=== PATIENT | male | born 1950 | race Caucasian/White ===

== ENCOUNTER 2016-07-12 18:54 | Inpatient (IN) | payer MEDICARE ==
[~2016-07-12] VITALS: Ht 180.3 cm; Wt 75.0 kg
[2016-07-12] MEDS ORDERED: SODIUM CHLORIDE 0.9% 1,000 ML IV ONE (19:13)
[2016-07-12 19:50] LABS: BLOOD UREA NITROGEN 17 mg/dL (7-18)
[2016-07-12] MEDS ORDERED: FINA5TAB4 PO (19:50)
[2016-07-12] MEDS ORDERED: ASPI-496 PO (19:50)
[2016-07-12] MEDS ORDERED: LEVO50TA5 PO (19:50)
[2016-07-12 19:58] LABS: IS PT STATUS REG ER OR PRE ER? YES
[2016-07-12] MEDS ORDERED: ACETAMINOPHEN 325 MG TABLET PO PRN (22:30)
[2016-07-12] MEDS ORDERED: ENALAPRILAT 1.25 MG/ML, 2ML IVPush PRN (22:30)
[2016-07-12] MEDS ORDERED: HYDROcodone/APAP 5/325 TABLET PO PRN (22:30)
[2016-07-12] MEDS ORDERED: MORPHINE SULFATE 4 MG/ML, 1ML IVPush PRN (22:30)
[2016-07-12] MEDS ORDERED: BISACODYL 10 MG SUPP PR PRN (22:30)
[2016-07-12] MEDS ORDERED: ONDANSETRON 2MG/ML, 2ML IVP PRN (22:30)
[2016-07-12] MEDS ORDERED: ENOXAPARIN 40 MG/0.4 ML SQ SCH (22:30)
[2016-07-12] MEDS ORDERED: POLYETHYLENE GLYCOL 17 GM PACKET PO PRN (22:30)
[2016-07-12 22:39] LABS: IS PT STATUS REG ER OR PRE ER? YES
[2016-07-12] MEDS: SODIUM CHLORIDE 0.9% 1,000 ML IV SCH (23:10)
[2016-07-12 23:30] VITALS: BP 126/83
[2016-07-13 02:30] VITALS: BP 141/89
[2016-07-13 04:46] LABS: HEMOGLOBIN 13.4 g/dL (13.7-18.0)
[2016-07-13 05:31] LABS: ASPARTATE AMINO TRANSFERASE 13 U/L (15-37); BLOOD UREA NITROGEN 13 mg/dL (7-18)
[2016-07-13 05:40] LABS: IS PT STATUS REG ER OR PRE ER? NO
[2016-07-13] MEDS ORDERED: ASPIRIN 325 MG TABLET EC PO SCH (06:00)
[2016-07-13 07:43] VITALS: BP 117/72
[2016-07-13] MEDS ORDERED: FINASTERIDE 5 MG TABLET PO SCH (09:00)
[2016-07-13] MEDS ORDERED: LEVOTHYROXINE 50 MCG TABLET PO SCH (09:00)
[2016-07-13] MEDS ORDERED: ASPIRIN 81 MG TABLET EC PO SCH (09:00)
[2016-07-13] MEDS: SODIUM CHLORIDE 0.9% 1,000 ML IV SCH (09:19)
[2016-07-13 13:36] VITALS: BP 138/82
[2016-07-13] MEDS ORDERED: LEVOTHYROXINE 50 MCG TABLET PO ONE (15:00)
[2016-07-13] MEDS ORDERED: Atorvastatin Calcium PO (16:44)
[2016-07-13] MEDS ORDERED: ATORVASTATIN 20 MG TABLET PO SCH (21:00)
[2016-07-14] MEDS ORDERED: LEVOTHYROXINE 50 MCG TABLET PO SCH (06:00)
[2016-07-14] MEDS ORDERED: ATOR20TA PO (16:40)
== END 2016-07-13 18:53 | disposition home or self-care (01) | DRG 300 ==
LOC: ED 20:50 → SUATTDRO 21:18 → EDIP 21:22 → 4WST 22:48
PROVIDERS: ADMIT Internal Medicine; ATTEND Family Medicine
DX: I73.9 Peripheral vascular disease, unspecified (principal); G45.9 Transient cerebral ischemic attack, unspecified; R47.01 Aphasia; E03.9 Hypothyroidism, unspecified; F12.90 Cannabis use, unspecified, uncomplicated; R60.0 Localized edema; Z85.819 Personal history of malignant neoplasm of unspecified site of lip, oral cavity, and pharynx; Z92.21 Personal history of antineoplastic chemotherapy; Z92.3 Personal history of irradiation; Z90.89 Acquired absence of other organs; Z85.850 Personal history of malignant neoplasm of thyroid
CPT/HCPCS: 36415; 70450; 70551; 80048; 80053; 80061; 82040; 84443; 84484; 85025; 85610; 85730; 93005; 93306; 93880; 96360; 96361; J1650; 92523-GN; J7030

== ENCOUNTER → 2016-09-12 | Outpatient (CLI) | payer MEDICARE ==
[~2016-09-12] MED LIST: ASPI-496 PO; ATOR20TA PO; Atorvastatin Calcium PO; FINA5TAB4 PO; LEVO50TA5 PO; REGADENOSON 0.4 MG/5 ML SYRINGE ONE
== END | disposition home or self-care (01) ==
LOC: CFH 08:50
PROVIDERS: ATTEND Internal Medicine Cardiovascular Disease
DX: R07.9 Chest pain, unspecified (principal)
CPT/HCPCS: 78452; 93017; A9502; J2785

== ENCOUNTER 2017-05-12 20:07 | Emergency (ER) | payer MEDICARE ==
[~2017-05-12] VITALS: Ht 182.9 cm; Wt 73.0 kg
[~2017-05-12 20:07] MED LIST changes: -REGADENOSON 0.4 MG/5 ML SYRINGE ONE
[2017-05-12] MEDS ORDERED: ALBUTEROL/IPRATROPIUM 2.5MG/0.5MG, 3 ML ONE (20:31)
[2017-05-12 20:33] LABS: BASOPHILS # (AUTO) 0.07 x10^3/uL (0-0.1); BASOPHILS % (AUTO) 1 % (0-1); EOSINOPHILS # (AUTO) 0.04 x10^3/uL (0-0.4); EOSINOPHILS % (AUTO) 0 % (1-7); LYMPHOCYTES # (AUTO) 0.79 x10^3/uL (1-3.4); LYMPHOCYTES % (AUTO) 9 % (22-44); MD NO; MEAN CORPUSCULAR HEMOGLOBIN 31.8 pg (27.5-34.5); MEAN CORPUSCULAR HGB CONC 33.3 g/dL (33.2-36.2); MEAN CORPUSCULAR VOLUME 95.4 fL (81-97); MEAN PLATELET VOLUME 8.4 fL (7.4-10.4); MONOCYTES # (AUTO) 0.51 x10^3/uL (0.2-0.8); MONOCYTES % (AUTO) 6 % (2-9); NEUTROPHILS # (AUTO) 7.29 x10^3/uL (1.8-6.8); NEUTROPHILS % (AUTO) 84 % (42-75); PLATELET COUNT 204 x10^3/uL (130-400); RED BLOOD COUNT 5.07 x10^6/uL (4.38-5.82); RED CELL DISTRIBUTION WIDTH 13.7 % (9.4-14.8)
[2017-05-12 20:48] LABS: TROPONIN I < 0.015 ng/mL (0.000-0.045)
[2017-05-12 20:55] LABS: ALANINE AMINOTRANSFERASE 37 U/L (12-78); ALBUMIN 3.9 g/dL (3.4-5.0); ANION GAP 10 mmol/L (5-15); CALCIUM 8.4 mg/dL (8.5-10.1); CHLORIDE 104 mmol/L (98-107)
[2017-05-12 20:58] LABS: ALKALINE PHOSPHATASE 54 U/L (45-117); BILIRUBIN,TOTAL 0.7 mg/dL (0.2-1.0); TOTAL PROTEIN 7.1 g/dL (6.4-8.2)
[2017-05-12 22:01] VITALS: BP 151/82
== END 2017-05-12 22:26 | disposition home or self-care (01) ==
LOC: ED 22:00
DX: R55 Syncope and collapse (principal); I10 Essential (primary) hypertension; E03.9 Hypothyroidism, unspecified; Z86.73 Personal history of transient ischemic attack (TIA), and cerebral infarction without residual deficits
CPT/HCPCS: 36415; 71010; 80053; 83880; 84484; 85025; 93005; 94640; 99285

== ENCOUNTER → 2017-05-25 | Outpatient (CLI) | payer MEDICARE | END | disposition home or self-care (01) | LOC: CARD 12:47 | PROVIDERS: ATTEND Psychiatry & Neurology Neurology | DX: R55 Syncope and collapse (principal) | CPT/HCPCS: 95819 ==

== ENCOUNTER 2018-07-25 15:33 | Inpatient (IN) | payer MEDICARE ==
[~2018-07-25] VITALS: Ht 182.9 cm; Wt 76.5 kg
[2018-07-25 16:13] LABS: BASOPHILS # (AUTO) 0.02 x10^3/uL (0-0.1); BASOPHILS % (AUTO) 0 % (0-1); EOSINOPHILS # (AUTO) 0.06 x10^3/uL (0-0.4); EOSINOPHILS % (AUTO) 1 % (1-7); LYMPHOCYTES # (AUTO) 1.01 x10^3/uL (1-3.4); LYMPHOCYTES % (AUTO) 15 % (22-44); MD NO; MEAN CORPUSCULAR HEMOGLOBIN 31.1 pg (27.5-34.5); MEAN CORPUSCULAR HGB CONC 32.6 g/dL (33.2-36.2); MEAN CORPUSCULAR VOLUME 95.2 fL (81-97); MEAN PLATELET VOLUME 8.6 fL (7.4-10.4); MONOCYTES # (AUTO) 0.51 x10^3/uL (0.2-0.8); MONOCYTES % (AUTO) 8 % (2-9); NEUTROPHILS # (AUTO) 5.07 x10^3/uL (1.8-6.8); NEUTROPHILS % (AUTO) 76 % (42-75); PLATELET COUNT 211 x10^3/uL (130-400); RED CELL DISTRIBUTION WIDTH 13.8 % (9.4-14.8)
[2018-07-25 16:20] LABS: ALBUMIN 4.2 g/dL (3.4-5.0); ANION GAP 6 mmol/L (5-15); CALCIUM 8.7 mg/dL (8.5-10.1); CHLORIDE 108 mmol/L (98-107); CREATININE 1.01 mg/dL (0.7-1.3)
--- NOTE | 2018-07-25 16:40 | NUR ---
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
--- NOTE | 2018-07-25 16:49 | NUR ---
PT AMBULATORY TO ROOM 17 W/ C/O HAVING AN IMPLANTED HEART MONITOR AND HAD A 9 SEC STOP ON 07/14/18. SENIOR TECHNICAL RECRUITER DR. GALARZA AT BEDSIDE WHO STATES PT NEEDS A PACEMAKER. [facility] ON [facility] MONITORS APPLIED. WARM BLANKET PROVIDED. PT ONLY HAD ONE INCIDENT OF A 9 SEC PAUSE.
[2018-07-25] MEDS ORDERED: ALFU10TA PO (17:25)
[2018-07-25] MEDS ORDERED: SUCR1TAB PO (17:25)
[2018-07-25] MEDS ORDERED: OMEP-110 PO (17:25)
[2018-07-25] MEDS ORDERED: AREDS (17:25)
[2018-07-25] MEDS ORDERED: CLOP75TA52 PO (17:25)
[2018-07-25] MEDS ORDERED: UBID50TA3 PO (17:25)
[2018-07-25] MEDS ORDERED: SODIUM CHLORIDE FLUSH 10ML SYR IVF PRN (17:30)
[2018-07-25] MEDS ORDERED: CEFAZOLIN PMX 1GM/50ML 50 ML IVPB ONE (17:30)
[2018-07-25 17:52] LABS: INTERNATIONAL NORMALIZED RATIO 1.01 (0.93-1.1); PROTHROMBIN TIME 10.6 Seconds (9.6-11.5)
[2018-07-25] MEDS ORDERED: ZOLPIDEM 5MG TABLET PO PRN (18:00)
[2018-07-25] MEDS ORDERED: ACETAMINOPHEN 325 MG TABLET PO PRN (18:00)
[2018-07-25 18:10] LABS: THYROID STIMULATING HORMONE 1.31 mIU/L (0.358-3.740)
--- NOTE | 2018-07-25 18:35 | NUR ---
PT RESTING ON GURNEY. NADN. LEE.
[2018-07-25] MEDS ORDERED: CEFAZOLIN PMX 1GM/50ML 50 ML ONE (18:40)
[2018-07-25] MEDS: SODIUM CHLORIDE 0.9% 1,000 ML IV SCH (18:56)
--- NOTE | 2018-07-25 19:02 | NUR ---
BEDSIDE REPORT GIVEN TO JAVIER VALLECILLO RN.
--- NOTE | 2018-07-25 20:00 | NUR ---
PT RESTING QUIETLY, TEXTING ON PHONE, NO DISTRESS NOTED, HAS LEFT FOR THE NIGHT, CALL LIGHT IN REACH
--- NOTE | 2018-07-25 21:09 | NUR ---
REPORT GIVEN TO KIRSTEN TORRES
[2018-07-25] MEDS: ATORVASTATIN 20 MG TABLET PO SCH (23:29)
[2018-07-25 23:33] VITALS: BP 152/90
[2018-07-26] MEDS: SODIUM CHLORIDE 0.9% 1,000 ML IV SCH ×4 (01:40→22:10)
[2018-07-26 01:51] VITALS: BP 128/70
[2018-07-26] MEDS: LEVOTHYROXINE 75 MCG TABLET PO SCH (06:11)
[2018-07-26 07:24] VITALS: BP 143/84
[2018-07-26] MEDS: CLOPIDOGREL 75 MG TABLET PO SCH (09:00)
[2018-07-26] MEDS ORDERED: UBIDECARENONE 200 MG PO SCH (09:00)
[2018-07-26] MEDS: ALFUZOSIN HCL 10 MG PO SCH (09:00)
[2018-07-26] MEDS: FINASTERIDE 5 MG TABLET PO SCH (09:00)
[2018-07-26] MEDS: OMEPRAZOLE 20 MG CAPSULE.DR PO SCH (09:00)
[2018-07-26] MEDS ORDERED: CEFAZOLIN PMX 1GM/50ML 50 ML ONE (10:25)
[2018-07-26] MEDS ORDERED: MIDAZOLAM 1 MG/ML, 5ML ONE (10:25)
[2018-07-26] MEDS ORDERED: LIDOCAINE 1%, 20ML ONE ×2 (10:25→11:50)
[2018-07-26] MEDS ORDERED: FENTANYL PF 250 MCG/5ML ONE (10:25)
[2018-07-26] MEDS ORDERED: CEFAZOLIN 1,000 MG ONE (10:26)
[2018-07-26] MEDS ORDERED: HOLD MEDICATION MC PRN (12:30)
[2018-07-26] MEDS ORDERED: HYDROcodone/APAP 5/325 TABLET PO PRN (12:30)
[2018-07-26 13:56] VITALS: BP 169/70
[2018-07-26] MEDS: CEFAZOLIN PMX 1GM/50ML 50 ML IVPB SCH (18:00)
[2018-07-26 20:51] VITALS: BP 158/90
[2018-07-26] MEDS: ATORVASTATIN 20 MG TABLET PO SCH (21:00)
[2018-07-26] MEDS: SODIUM CHLORIDE FLUSH 10ML SYR IVF SCH (21:00)
[2018-07-27 01:56] VITALS: BP 168/96
[2018-07-27] MEDS: CEFAZOLIN PMX 1GM/50ML 50 ML IVPB SCH ×2 (02:30→09:03)
[2018-07-27 05:12] LABS: BASOPHILS # (AUTO) 0.02 x10^3/uL (0-0.1); BASOPHILS % (AUTO) 0 % (0-1); EOSINOPHILS # (AUTO) 0.05 x10^3/uL (0-0.4); EOSINOPHILS % (AUTO) 1 % (1-7); LYMPHOCYTES # (AUTO) 0.92 x10^3/uL (1-3.4); LYMPHOCYTES % (AUTO) 13 % (22-44); MD NO; MEAN CORPUSCULAR HGB CONC 33.3 g/dL (33.2-36.2); MEAN CORPUSCULAR VOLUME 96.1 fL (81-97); MONOCYTES % (AUTO) 8 % (2-9); NEUTROPHILS # (AUTO) 5.57 x10^3/uL (1.8-6.8); NEUTROPHILS % (AUTO) 78 % (42-75); PLATELET COUNT 177 x10^3/uL (130-400); RED BLOOD COUNT 4.81 x10^6/uL (4.38-5.82)
[2018-07-27 05:20] LABS: ALBUMIN 3.5 g/dL (3.4-5.0); ANION GAP 6 mmol/L (5-15); CALCIUM 8.4 mg/dL (8.5-10.1); CHLORIDE 110 mmol/L (98-107)
[2018-07-27 05:23] LABS: ALANINE AMINOTRANSFERASE 18 U/L (12-78); ALKALINE PHOSPHATASE 51 U/L (45-117); CREATININE 0.86 mg/dL (0.7-1.3); TOTAL PROTEIN 6.5 g/dL (6.4-8.2)
[2018-07-27] MEDS: LEVOTHYROXINE 75 MCG TABLET PO SCH (06:00)
[2018-07-27 08:05] VITALS: BP 161/91
[2018-07-27] MEDS ORDERED: ACET325T14 PO (08:58)
[2018-07-27] MEDS: FINASTERIDE 5 MG TABLET PO SCH (09:00)
[2018-07-27] MEDS: CLOPIDOGREL 75 MG TABLET PO SCH (09:00)
[2018-07-27] MEDS: OMEPRAZOLE 20 MG CAPSULE.DR PO SCH (09:00)
[2018-07-27] MEDS: ALFUZOSIN HCL 10 MG PO SCH (09:00)
[2018-07-27] MEDS: SODIUM CHLORIDE FLUSH 10ML SYR IVF SCH (09:03)
== END 2018-07-27 10:48 | disposition home or self-care (01) | DRG 242 ==
LOC: ED 17:25 → EDIP 17:26 → ED 17:59 → 5SO 21:22 → DCLOUNGE 07-27 10:30
PROVIDERS: ADMIT Internal Medicine Cardiovascular Disease; ATTEND Internal Medicine Cardiovascular Disease
PROC: 0JH606Z Insertion of Pacemaker, Dual Chamber into Chest Subcutaneous Tissue and Fascia, Open Approach (ICD-10-PCS; principal; 2018-07-26)
PROC: 02H63JZ Insertion of Pacemaker Lead into Right Atrium, Percutaneous Approach (ICD-10-PCS; 2018-07-26)
PROC: 02HK3JZ Insertion of Pacemaker Lead into Right Ventricle, Percutaneous Approach (ICD-10-PCS; 2018-07-26)
PROC: 0JPT02Z Removal of Monitoring Device from Trunk Subcutaneous Tissue and Fascia, Open Approach (ICD-10-PCS; 2018-07-26)
PROC: 4B02XSZ Measurement of Cardiac Pacemaker, External Approach (ICD-10-PCS; 2018-07-27)
DX: I49.5 Sick sinus syndrome (principal); I50.33 Acute on chronic diastolic (congestive) heart failure; I10 Essential (primary) hypertension; E78.5 Hyperlipidemia, unspecified; E03.9 Hypothyroidism, unspecified; I08.0 Rheumatic disorders of both mitral and aortic valves; Z85.819 Personal history of malignant neoplasm of unspecified site of lip, oral cavity, and pharynx; Z86.73 Personal history of transient ischemic attack (TIA), and cerebral infarction without residual deficits; Z87.891 Personal history of nicotine dependence; I11.0 Hypertensive heart disease with heart failure
CPT/HCPCS: 33208; 36415; 71045; 71046; 80048; 80053; 82040; 84443; 84481; 85025; 85610; 85730; 93005; 93306; 96374; 99156; 99157; 99285; C1779; C1785; C1892; G0378; J0690; J2250; J3010; J3490; J7030

== ENCOUNTER → 2018-07-31 | Outpatient (CLI) | payer MEDICARE ==
[~2018-07-31] MED LIST changes: +ACET325T14 PO; +ALFU10TA PO; +AREDS; +CLOP75TA52 PO; +OMEP-110 PO; +SUCR1TAB PO; +UBID50TA3 PO
== END | disposition home or self-care (01) ==
LOC: CFH 11:03
DX: E03.9 Hypothyroidism, unspecified (principal); G45.9 Transient cerebral ischemic attack, unspecified; I10 Essential (primary) hypertension; I36.1 Nonrheumatic tricuspid (valve) insufficiency; I73.9 Peripheral vascular disease, unspecified; Z96.89 Presence of other specified functional implants
CPT/HCPCS: 71046

== ENCOUNTER → 2018-10-10 | Outpatient (CLI) | payer MEDICARE | END | disposition home or self-care (01) | LOC: CVU 08:26 | PROVIDERS: ATTEND Internal Medicine Cardiovascular Disease | DX: I65.23 Occlusion and stenosis of bilateral carotid arteries (principal); I10 Essential (primary) hypertension; E78.5 Hyperlipidemia, unspecified; Z95.0 Presence of cardiac pacemaker; Z86.73 Personal history of transient ischemic attack (TIA), and cerebral infarction without residual deficits | CPT/HCPCS: 93880 ==

== ENCOUNTER 2018-11-26 16:18 | Outpatient (CLI) | payer MEDICARE | END 2018-11-26 23:59 | disposition home or self-care (01) | LOC: CFH 16:18 | PROVIDERS: ATTEND Nurse Practitioner Primary Care | DX: M79.662 Pain in left lower leg (principal) ==

== ENCOUNTER 2018-12-12 16:02 | Outpatient (CLI) | payer MEDICARE | END 2018-12-12 23:59 | disposition home or self-care (01) | LOC: CVU 16:02 | PROVIDERS: ATTEND Nurse Practitioner Primary Care | DX: M79.662 Pain in left lower leg (principal); I10 Essential (primary) hypertension; E78.5 Hyperlipidemia, unspecified | CPT/HCPCS: 93922 ==

== ENCOUNTER 2018-12-13 10:51 | Outpatient (CLI) | payer MEDICARE | END 2018-12-13 23:59 | disposition home or self-care (01) | LOC: RAD 10:51 | PROVIDERS: ATTEND Nurse Practitioner Primary Care | DX: M51.16 Intervertebral disc disorders with radiculopathy, lumbar region (principal); M48.061 Spinal stenosis, lumbar region without neurogenic claudication; M47.817 Spondylosis without myelopathy or radiculopathy, lumbosacral region; M51.26 Other intervertebral disc displacement, lumbar region; D18.09 Hemangioma of other sites; I10 Essential (primary) hypertension; K21.9 Gastro-esophageal reflux disease without esophagitis; E03.9 Hypothyroidism, unspecified; I77.9 Disorder of arteries and arterioles, unspecified; I83.90 Asymptomatic varicose veins of unspecified lower extremity; M79.662 Pain in left lower leg; R53.83 Other fatigue; Z79.899 Other long term (current) drug therapy | CPT/HCPCS: 72148 ==

== ENCOUNTER 2018-12-31 08:01 | Day surgery (SDC) | payer MEDICARE ==
[~2018-12-31] VITALS: Ht 182.9 cm; Wt 71.6 kg
[2018-12-31 08:41] VITALS: BP 146/93
== END 2018-12-31 12:55 | disposition home or self-care (01) ==
LOC: OUT 08:01
PROVIDERS: ATTEND Internal Medicine
DX: K20.9 Esophagitis, unspecified (principal); K22.8 Other specified diseases of esophagus; I10 Essential (primary) hypertension; Z86.73 Personal history of transient ischemic attack (TIA), and cerebral infarction without residual deficits; Z95.0 Presence of cardiac pacemaker
CPT/HCPCS: 43254; 43259; 88305; 93005; A4648; J2704; J7120; 88313; 88342

== ENCOUNTER → 2020-07-09 | Outpatient (CLI) | payer MEDICARE ==
[~2020-07-09] MED LIST changes: +REGADENOSON 0.4 MG/5 ML SYRINGE ONE
== END | disposition home or self-care (01) ==
LOC: CFH 12:56
PROVIDERS: ATTEND Physician Assistant Medical
DX: R07.9 Chest pain, unspecified (principal); I10 Essential (primary) hypertension
CPT/HCPCS: 78452; 93017; A9502; J2785